=== PATIENT | female | born 1985 | race Caucasian/White ===

== ENCOUNTER 2020-07-10 13:02 | Emergency (ER) | payer MEDICAID, OTHER ==
[~2020-07-10] VITALS: Ht 162.6 cm; Wt 87.0 kg
[2020-07-10 13:06] VITALS: BP 121/78
[2020-07-10] MEDS ORDERED: ACETAMINOPHEN 325MG TABLET PO ONE (14:15)
[2020-07-10] MEDS ORDERED: BACITRACIN ZINC OINT UDPKT TOP ONE (14:15)
[2020-07-10] MEDS ORDERED: LIDOCAINE HCL/PF 1% 10 MG/ML 5ML VIAL IJ ONE (14:15)
[2020-07-13 04:07] LABS: NEISSERIA GONORRHOEAE NAA Negative (Negative)
== END 2020-07-10 15:28 | disposition home or self-care (01) ==
LOC: ER 13:02
DX: N75.0 Cyst of Bartholin's gland (principal)
CPT/HCPCS: 10060; 87491; 87591; 99283; J3490

== ENCOUNTER 2021-01-09 14:43 | Emergency (ER) | payer OTHER ==
[~2021-01-09] VITALS: Ht 162.6 cm; Wt 91.0 kg
[2021-01-09] MEDS ORDERED: LIDOCAINE HCL 1% 20ML VIAL (Pyxis) INJ INFIL ONE (15:30)
[2021-01-09 16:30] VITALS: BP 121/80
== END 2021-01-09 16:31 | disposition home or self-care (01) ==
LOC: ER 14:43
DX: N75.0 Cyst of Bartholin's gland (principal)
CPT/HCPCS: 99281; J3490